=== PATIENT | female | born 1960 | race Caucasian/White ===

== ENCOUNTER 2025-02-12 10:44 | Inpatient (IN) | payer OTHER ==
[~2025-02-12] VITALS: Ht 157.5 cm; Wt 85.5 kg
[2025-02-12] MEDS: ALBUTEROL SULFATE 2.5 MG/0.5 ML INH CONCENTRATE NEB SOLN INH PRN (11:25)
[2025-02-12 11:27] LABS: BASO # 0.0 10^3/uL (0.0-0.2); BASO % 0.1 % (0.0-1.0); EOS # 0.0 10^3/uL (0.0-0.5); EOS % 0.0 % (0.0-3.0); LYMPH # 0.5 10^3/uL (1.5-5.0); LYMPH % 6.0 % (24.0-44.0); MONO # 0.4 10^3/uL (0.0-0.8); MONO % 5.2 % (2.0-8.0); NEUTROPHILS # 6.9 10^3/uL (1.5-8.5); NEUTROPHILS % 87.7 % (36.0-66.0); PLATELET COUNT, AUTOMATED 119 10^3/uL (150-450)
[2025-02-12 11:29] LABS: VENOUS BASE EXCESS 8.3 (-2.0-2.0); VENOUS HCO3 38.6 MMOL/L (23.0-27.0); VENOUS O2 SATURATION 79.5 % (60.0-80.0); VENOUS PARTIAL PRESSURE CO2 81.4 mmHg (38.0-50.0); VENOUS PARTIAL PRESSURE O2 42.5 mmHg (30.0-50.0); VENOUS PH 7.294 UNITS (7.330-7.430); VENOUS STANDARD HCO3 31.5 MMOL/L; VENOUS TOTAL CO2 41.1 MMOL/L (24.0-28.0)
[2025-02-12 12:00] LABS: ALT/SGPT 42 U/L (7.0-40); AST/SGOT 31 U/L (<34); CALCIUM LEVEL 9.6 MG/DL (8.3-10.6); CARBON DIOXIDE LEVEL 40 MMOL/L (20-31); CHLORIDE LEVEL 100 MMOL/L (98-107); CREATININE FOR GFR 0.72 MG/DL (0.55-1.30); GLOMERULAR FILTRATION RATE > 90.0 (>45); POTASSIUM SERUM 3.4 MMOL/L (3.5-5.1); SODIUM LEVEL 144 MMOL/L (136-145)
[2025-02-12 12:08] LABS: ABG BASE EXCESS 9.2 (-2.0-2.0); ABG HCO3 38.9 MMOL/L (22.0-26.0); ABG O2 SATURATION 91.7 % (95.0-99.0); ABG PARTIAL PRESSURE O2 60.8 mmHg (75.0-100.0); ABG STANDARD HCO3 32.8 MMOL/L. (22.0-26.0); ABG TOTAL CO2 41.3 MMOL/L (23.0-31.0); ABG pH (ARTERIAL) 7.315 UNITS (7.350-7.450)
[2025-02-12 12:09] LABS: ABG PARTIAL PRESSURE CO2 78.2 mmHg (35.0-45.0)
[2025-02-12] MEDS ORDERED: AZIT500T5 PO (12:46)
[2025-02-12] MEDS ORDERED: GABA-1172 PO ×2 (12:46→15:07)
[2025-02-12] MEDS ORDERED: ROPI2TAB46 PO (12:46)
[2025-02-12] MEDS ORDERED: ATOR1TAB19 PO (12:46)
[2025-02-12] MEDS ORDERED: SEMA0.257 SQ (12:46)
[2025-02-12] MEDS ORDERED: FURO20TA2 PO (12:46)
[2025-02-12] MEDS ORDERED: IPRA0.00 INH (12:46)
[2025-02-12] MEDS ORDERED: ERGO125013 PO (12:46)
[2025-02-12] MEDS ORDERED: HYDR-3490 PO (12:46)
[2025-02-12] MEDS ORDERED: LOSA50TA28 PO (12:46)
[2025-02-12] MEDS ORDERED: POTA-298 PO (12:46)
[2025-02-12] MEDS ORDERED: BUDE10.7 INH (12:46)
[2025-02-12] MEDS: cefTRIAXone SOD 1 GM in DEXTROSE 5% (D5W) ADV/MINI-BAG 50 ML IV ONE (12:46)
[2025-02-12] MEDS ORDERED: BENL200I SC (12:46)
[2025-02-12] MEDS ORDERED: ISOVUE-370 76% 100 ML VIAL As Ordered ONE (12:56)
[2025-02-12] MEDS ORDERED: ALBUTEROL SULFATE 2.5 MG/0.5 ML INH CONCENTRATE NEB SOLN NEB PRN (14:20)
[2025-02-12] MEDS ORDERED: NICO-242 PO (15:10)
[2025-02-12] MEDS ORDERED: PRED20TA PO (15:10)
[2025-02-12] MEDS ORDERED: HYDR-3719 PO (15:11)
[2025-02-12] MEDS ORDERED: GLUCAGON INJ 1 MG VIAL SC PRN (15:15)
[2025-02-12] MEDS ORDERED: GLUCOSE 4 GM CHEW PO PRN (15:15)
[2025-02-12] MEDS ORDERED: DEXTROSE 50% 50 ML SYRINGE IV PRN (15:15)
[2025-02-12] MEDS ORDERED: HOME MED LIST COMPLETE! XX SCH (15:15)
[2025-02-12] MEDS: IPRATROPIUM 0.5 MG/ALBUTEROL 2.5 MG INH SOL UD 3 ML NEB SCH (15:21)
[2025-02-12] MEDS: BENZONATATE 100 MG CAPSULE PO SCH (16:39)
[2025-02-12] MEDS: AZITHROMYCIN 250 MG TABLET PO ONE (16:39)
[2025-02-12] MEDS: GABAPENTIN 300 MG CAP PO ONE (16:40)
[2025-02-12 17:05] VITALS: BP 160/80; TEMP 97.6; O2SAT 90
[2025-02-12] MEDS: INSULIN LISPRO (NovoLOG) PER UNIT SC SCH ×2 (18:49→20:35)
[2025-02-12] MEDS: BREZTRI INH SCH (20:00)
[2025-02-12 20:15] VITALS: BP 146/70; TEMP 97.5; O2SAT 92
[2025-02-12] MEDS: ENOXAPARIN 40 MG/0.4 ML SYRINGE (J1650 PER 10MG) SC SCH (20:36)
[2025-02-12] MEDS: GABAPENTIN 300 MG CAP PO SCH (20:36)
[2025-02-12] MEDS: ATORVASTATIN 10 MG TAB PO SCH (20:38)
[2025-02-13] VITALS (23 sets, daily range): BP systolic 123–155; BP diastolic 60–74; TEMP 97–98.3; O2SAT 88–98
[2025-02-13 05:49] LABS: PLATELET COUNT, AUTOMATED 125 10^3/uL (150-450)
[2025-02-13 06:24] LABS: CALCIUM LEVEL 8.8 MG/DL (8.3-10.6); CARBON DIOXIDE LEVEL 38 MMOL/L (20-31); CHLORIDE LEVEL 101 MMOL/L (98-107); CREATININE FOR GFR 0.68 MG/DL (0.55-1.30); GLOMERULAR FILTRATION RATE > 90.0 (>45); POTASSIUM SERUM 4.2 MMOL/L (3.5-5.1); SODIUM LEVEL 144 MMOL/L (136-145)
[2025-02-13] MEDS: cefTRIAXone SOD 1 GM in DEXTROSE 5% (D5W) ADV/MINI-BAG 50 ML IV SCH (10:51)
[2025-02-13] MEDS: AZITHROMYCIN 250 MG TABLET PO SCH (10:52)
[2025-02-13] MEDS: POTASSIUM CHLORIDE 10MEQ SR TABLET PO SCH (10:52)
[2025-02-13] MEDS: GABAPENTIN 300 MG CAP PO SCH (10:53)
[2025-02-13] MEDS: LOSARTAN 50 MG TABLET PO SCH (10:54)
[2025-02-13] MEDS: hydroCHLOROthiazide 25 MG TAB PO SCH (10:55)
[2025-02-14] VITALS (26 sets, daily range): BP systolic 130–179; BP diastolic 60–73; TEMP 97.2–97.6; O2SAT 89–97
[2025-02-14 06:32] LABS: CALCIUM LEVEL 9.1 MG/DL (8.3-10.6); CARBON DIOXIDE LEVEL 39.0 MMOL/L (20-31); CHLORIDE LEVEL 98.0 MMOL/L (98-107); CREATININE FOR GFR 0.77 MG/DL (0.55-1.30); GLOMERULAR FILTRATION RATE 87.2 (>45); POTASSIUM SERUM 3.7 MMOL/L (3.5-5.1); SODIUM LEVEL 144.0 MMOL/L (136-145)
[2025-02-14] MEDS: METAMUCIL PACKET PO PRN (15:50)
[2025-02-14] MEDS: BISACODYL 5 MG TAB PO SCH (15:50)
[2025-02-15] VITALS (17 sets, daily range): BP systolic 136–161; BP diastolic 71–85; TEMP 97–97.7; O2SAT 83–98
[2025-02-16 04:22] VITALS: BP 120/67; TEMP 97.2; O2SAT 96
[2025-02-16 07:47] VITALS: BP 155/87
[2025-02-16] MEDS: FUROSEMIDE 40 MG/4 ML VIAL IV ONE (07:47)
[2025-02-16 10:34] VITALS: O2SAT 91
[2025-02-16 10:35] VITALS: O2SAT 83; O2SAT 89; O2SAT 94
[2025-02-16 12:00] VITALS: BP 155/85; TEMP 97.5; O2SAT 92
[2025-02-16] MEDS ORDERED: PROT1TAB2 PO (12:22)
[2025-02-16] MEDS ORDERED: PRED20TA PO (12:22)
[2025-02-16] MEDS ORDERED: INSU100I24 SQ (12:33)
[2025-02-16] MEDS ORDERED: INSU100I16 SQ (12:49)
[2025-02-17] MEDS ORDERED: predniSONE 20 MG TAB PO SCH (09:00)
== END 2025-02-16 15:18 | disposition home or self-care (01) | DRG 140 ==
LOC: EDBD 10:44 → M ED 10:44 → M ED INP 16:16 → M PCU 16:59 → M MSPAV 02-15 16:14
PROVIDERS: ADMIT Student in an Organized Health Care Education/Training Program; ATTEND Student in an Organized Health Care Education/Training Program
DX: J44.1 Chronic obstructive pulmonary disease with (acute) exacerbation (principal); J96.21 Acute and chronic respiratory failure with hypoxia; M32.9 Systemic lupus erythematosus, unspecified; I10 Essential (primary) hypertension; E11.9 Type 2 diabetes mellitus without complications; G89.29 Other chronic pain; F17.200 Nicotine dependence, unspecified, uncomplicated; R91.8 Other nonspecific abnormal finding of lung field; Z79.899 Other long term (current) drug therapy; Z79.52 Long term (current) use of systemic steroids; Z88.0 Allergy status to penicillin; Z88.6 Allergy status to analgesic agent; Z88.2 Allergy status to sulfonamides; Z88.8 Allergy status to other drugs, medicaments and biological substances